=== PATIENT | female | born 1965 | race American Indian/Alaskan Native ===

== ENCOUNTER 2016-06-24 11:22 | Emergency (ER) | payer MEDICAID ==
[2016-06-24] MEDS ORDERED: ZESTRIL PO ONE (13:08)
--- NOTE | 2016-06-24 13:08 | Emergency Department Report ---
<NEDA KAY - Last Filed: 06/24/16 13:56> ED General Adult HPI - General Chief complaint: Rectal Pain Stated complaint: HEMORRHOIDS Time Seen by Provider: 06/24/16 12:22 Source: patient Mode of arrival: Ambulatory Limitations: No Limitations - History of Present Illness Initial comments: This is a 51-year-old female that presents with rectal pain since Friday. Patient complaining of severe pain 10 out of 10 with noticeable hemorrhoids. Patient stated has been taking heth-utf-rdlvvxt products such as abscess and so an sitz bath with unknown gfzz-dfi-upkdilv topical cream for pain with minimal relief. He denies any history of this. Based denies any bleeding. Based denies visual bleeding after a bowel movement. Denies any headache, chest pain , shortness of breath, abdominal pain. Patient stated has history of hypertension but has not been taking lisinopril for the past couple of days due to no medication refill. 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 Patient they will follow up with her building construction ironworker this week. Denies headache or visual changes. Patient is not toxic or ill appearance. No signs of distress noted. MD Complaint: hemorrhoids -: Gradual, days(s) (3) Radiation: non-radiation Severity scale (0 -10): 10 Consistency: constant Improves with: other (sitz bath, OTC unknown topical hemorrhoid cream) Associated Symptoms: denies other symptoms. denies: confusion, chest pain, cough, diaphoresis, fever/chills, headaches, loss of appetite, malaise, nausea/ vomiting, rash, seizure, shortness of breath, syncope, weakness Treatments Prior to Arrival: none - Related Data Previous Rx's Medication Instructions Recorded Last Taken Type Diazepam Tab [Valium] 5 mg PO Q8HR PRN #10 tablet 02/19/15 Unknown Rx Ibuprofen [Motrin] 600 mg PO Q8H PRN #15 tablet 02/19/15 Unknown Rx Lisinopril [Zestril TAB] 5 mg PO QDAY #31 tablet 04/12/16 Unknown Rx traMADol [Ultram 50 MG tab] 50 mg PO Q6HR PRN #15 tablet 04/12/16 Unknown Rx Hydrocortisone/Lidocaine/Aloe 1 each RC PRN #1 kit 06/24/16 Unknown Rx [Afshan-Davon 2-2% Kit] Ibuprofen [Motrin 600 MG tab] 600 mg PO Q8H PRN 5 Days 06/24/16 Unknown Rx Allergies Allergy/AdvReac Type Severity Reaction Status Date / Time No Known Allergies Allergy Unverified 02/18/15 18:25 ED Review of Systems ROS: Stated complaint: HEMORRHOIDS Other details as noted in HPI Constitutional: denies: chills, fever Eyes: denies: eye pain, eye discharge, vision change ENT: denies: ear pain, throat pain Respiratory: denies: cough, shortness of breath, wheezing Cardiovascular: denies: chest pain, palpitations Endocrine: no symptoms reported Gastrointestinal: denies: abdominal pain, nausea, diarrhea Genitourinary: denies: urgency, dysuria, discharge Musculoskeletal: denies: back pain, joint swelling, arthralgia Skin: denies: rash, lesions Neurological: denies: headache, weakness, paresthesias Psychiatric: denies: anxiety, depression Hematological/Lymphatic: denies: easy bleeding, easy bruising ED Past Medical Hx - Past Medical History Hx Hypertension: Yes Hx Psychiatric Treatment: Yes (BIPOLAR, ANXIETY) - Surgical History Additional Surgical History: ABDOMINAL SURGERY, HYST, - Social History Smoking Status: Unknown if ever smoked Substance Use Type: None - Medications Home Medications: Home Medications Medication Instructions Recorded Confirmed Last Taken Type Diazepam Tab [Valium] 5 mg PO Q8HR PRN #10 tablet 02/19/15 Unknown Rx Ibuprofen [Motrin] 600 mg PO Q8H PRN #15 tablet 02/19/15 Unknown Rx Lisinopril [Zestril TAB] 5 mg PO QDAY #31 tablet 04/12/16 Unknown Rx traMADol [Ultram 50 MG tab] 50 mg PO Q6HR PRN #15 tablet 04/12/16 Unknown Rx Hydrocortisone/Lidocaine/Aloe 1 each RC PRN #1 kit 06/24/16 Unknown Rx [Afshan-Davon 2-2% Kit] Ibuprofen [Motrin 600 MG tab] 600 mg PO Q8H PRN 5 Days 06/24/16 Unknown Rx ED Physical Exam - General Limitations: No Limitations General appearance: alert, in no apparent distress - Head Head exam: Present: atraumatic, normocephalic - Eye Eye exam: Present: normal appearance - ENT ENT exam: Present: mucous membranes moist - Neck Neck exam: Present: normal inspection - Respiratory Respiratory exam: Present: normal lung sounds bilaterally. Absent: respiratory distress - Cardiovascular Cardiovascular Exam: Present: regular rate, normal rhythm. Absent: systolic murmur, diastolic murmur, rubs, gallop - GI/Abdominal GI/Abdominal exam: Present: soft, normal bowel sounds. Absent: distended, tenderness, rebound, rigid - Rectal Rectal exam: Present: hemorrhoids. Absent: decreased rectal tone, heme (+) stool, bloody stool, fecal impaction, mass, tenderness - External exam: Present: normal external exam. Absent: erythema, swelling, lesions, lacerations, ecchymosis, bleeding - Extremities Exam Extremities exam: Present: normal inspection - Back Exam Back exam: Present: normal inspection - Neurological Exam Neurological exam: Present: alert, oriented X3 - Psychiatric Psychiatric exam: Present: normal affect, normal mood - Skin Skin exam: Present: warm, dry, intact, normal color. Absent: rash ED Course Vital Signs 06/24/16 06/24/16 06/24/16 11:51 13:20 13:21 Temperature 98.4 F 97.4 F L Pulse Rate 85 80 Respiratory 18 20 18 Rate Blood Pressure 160/104 149/84 Blood Pressure 149/84 [Right] O2 Sat by Pulse 100 100 Oximetry 06/24/16 13:52 Temperature Pulse Rate 91 H Respiratory Rate Blood Pressure Blood Pressure 169/90 [Right] O2 Sat by Pulse Oximetry - Reevaluation(s) Reevaluation #1: 06/24/16 13:58 Dr. Florence aware of patient v/s and d/c treatment plan/. ED Medical Decision Making - Medical Decision Making ED course: 51-year-old female that presents with hemorrhoids 1- Dr. Davenport has examined the patient and agrees with d/c plan and treatment 2- I instructed patient to follow-up with outpatient general surgery as soon as possible. 3- I instructed the patient to observe sign and symptoms of bleeding and return back to ER if symptoms of worsening and/or bleeding occurs. 4- Patient received information on sitz bath and topical hydrocortisone/ lidocaine. 5- patient agreed to discharge plan and treatment. No further questions noted from the patient this time. 6- at the time of discharged the patient does not seem toxic or ill appearance. No signs of distress noted. 7- patient received ultram and lisinopril by mouth. As per patient her daughter in a waiting room. I instructed the patient not to use heavy machinery due to sedation of Ultram that recently received in the ER. Critical care attestation.: If time is entered above; I have spent that time in minutes in the direct care of this critically ill patient, excluding procedure time. ED Disposition Disposition: DISCHARGED TO HOME OR SELFCARE Is pt being admited?: No Does the pt Need Aspirin: No Condition: Stable Instructions: Sitz Bath (GEN) Additional Instructions: Follow-up with an outpatient primary care doctor and general surgeon as soon as possible. If symptoms worsen such as uncontrollable pain and/or bleeding report back to emergency room. Prescriptions: Hydrocortisone/Lidocaine/Aloe [Afshan-Davon 2-2% Kit] 1 each RC PRN #1 kit Ibuprofen [Motrin 600 MG tab] 600 mg PO Q8H PRN 5 Days PRN Reason: Pain Referrals: PRIMARY CAREMD [Primary Care Provider] - 3-5 Days [facility] [Outside] - 3-5 Days [facility] [Outside] - 3-5 Days MOLINA JUAREZ MD [Staff Physician] - 24 Hours Forms: Work/School Release Form(ED) <ASIA FLORENCE - Last Filed: 06/26/16 08:26> ED Medical Decision Making - Medical Decision Making I have seen and examined the patient. Large external hemorrhoids present without thrombosis. I agree with the plan of care as documented.
[2016-06-24] MEDS ORDERED: ULTRAM PO ONE (13:09)
[2016-06-24 13:52] VITALS: BP 169/90
== END 2016-06-24 14:10 | disposition home or self-care (01) ==
LOC: ED 11:22
DX: K64.9 Unspecified hemorrhoids (principal); I10 Essential (primary) hypertension; F31.9 Bipolar disorder, unspecified
CPT/HCPCS: 99283

== ENCOUNTER 2016-06-27 09:49 | Emergency (ER) | payer MEDICAID ==
[2016-06-27 10:17] VITALS: BP 168/100
--- NOTE | 2016-06-27 11:36 | Emergency Department Report ---
ED Female HPI - General Chief complaint: Rectal Pain Stated complaint: HEMMOROIDS Time Seen by Provider: 06/27/16 11:10 Source: patient Mode of arrival: Ambulatory Limitations: No Limitations - History of Present Illness Initial comments: 51-year-old female past medical history hypertension anxiety bipolar disorder presents with complaint of one week of anal itching anal discomfort, patient states she was diagnosed with hemorrhoids has been using hemorrhoid cream and Motrin but pain is still bothering her. Patient states she had one episode of bright red blood per rectum this morning. Denies any persistent bleeding. Patient states it is uncomfortable when she defecates. Onset/Timin -: week(s) Severity: moderate Severity scale (0 -10): 6 Quality: burning Consistency: intermittent Worsens with: other (defecation) Are you Now?: No - Related Data Previous Rx's Medication Instructions Recorded Last Taken Type Diazepam Tab [Valium] 5 mg PO Q8HR PRN #10 tablet 02/19/15 Unknown Rx Ibuprofen [Motrin] 600 mg PO Q8H PRN #15 tablet 02/19/15 Unknown Rx Lisinopril [Zestril TAB] 5 mg PO QDAY #31 tablet 04/12/16 Unknown Rx traMADol [Ultram 50 MG tab] 50 mg PO Q6HR PRN #15 tablet 04/12/16 Unknown Rx Hydrocortisone/Lidocaine/Aloe 1 each RC PRN #1 kit 06/24/16 Unknown Rx [Afshan-Davon 2-2% Kit] Ibuprofen [Motrin 600 MG tab] 600 mg PO Q8H PRN 5 Days 06/24/16 Unknown Rx Naproxen [Naprosyn TAB] 500 mg PO BID PRN #30 tablet 06/27/16 Unknown Rx Allergies Allergy/AdvReac Type Severity Reaction Status Date / Time No Known Allergies Allergy Verified 06/27/16 10:17 ED Review of Systems ROS: Stated complaint: HEMMOROIDS Other details as noted in HPI Constitutional: denies: chills, fever Eyes: denies: eye pain, eye discharge, vision change ENT: denies: ear pain, throat pain Respiratory: denies: cough, shortness of breath, wheezing Cardiovascular: denies: chest pain, palpitations Endocrine: no symptoms reported Gastrointestinal: denies: abdominal pain, nausea, diarrhea Genitourinary: other (hemorrhoids). denies: urgency, dysuria, discharge Musculoskeletal: denies: back pain, joint swelling, arthralgia Skin: denies: rash, lesions Neurological: denies: headache, weakness, paresthesias Psychiatric: denies: anxiety, depression Hematological/Lymphatic: denies: easy bleeding, easy bruising ED Past Medical Hx - Past Medical History Hx Hypertension: Yes Hx Psychiatric Treatment: Yes (BIPOLAR, ANXIETY) Additional medical history: OBESITY - Surgical History Additional Surgical History: ABDOMINAL SURGERY, HYST - Social History Smoking Status: Current Every Day Smoker Substance Use Type: Alcohol - Medications Home Medications: Home Medications Medication Instructions Recorded Confirmed Last Taken Type Diazepam Tab [Valium] 5 mg PO Q8HR PRN #10 tablet 02/19/15 Unknown Rx Ibuprofen [Motrin] 600 mg PO Q8H PRN #15 tablet 02/19/15 Unknown Rx Lisinopril [Zestril TAB] 5 mg PO QDAY #31 tablet 04/12/16 Unknown Rx traMADol [Ultram 50 MG tab] 50 mg PO Q6HR PRN #15 tablet 04/12/16 Unknown Rx Hydrocortisone/Lidocaine/Aloe 1 each RC PRN #1 kit 06/24/16 Unknown Rx [Afshan-Davon 2-2% Kit] Ibuprofen [Motrin 600 MG tab] 600 mg PO Q8H PRN 5 Days 06/24/16 Unknown Rx Naproxen [Naprosyn TAB] 500 mg PO BID PRN #30 tablet 06/27/16 Unknown Rx ED Physical Exam - General Limitations: No Limitations General appearance: alert, in no apparent distress - Head Head exam: Present: atraumatic, normocephalic - Eye Eye exam: Present: normal appearance, PERRL, EOMI - ENT ENT exam: Present: mucous membranes moist - Neck Neck exam: Present: normal inspection - Respiratory Respiratory exam: Present: normal lung sounds bilaterally. Absent: respiratory distress - Cardiovascular Cardiovascular Exam: Present: regular rate, normal rhythm. Absent: systolic murmur, diastolic murmur, rubs, gallop - GI/Abdominal GI/Abdominal exam: Present: soft, normal bowel sounds - Rectal Rectal exam: Present: hemorrhoids (large external hemorrhoid, no active hemorrhage) - Extremities Exam Extremities exam: Present: normal inspection - Back Exam Back exam: Present: normal inspection - Neurological Exam Neurological exam: Present: alert, oriented X3 - Psychiatric Psychiatric exam: Present: normal affect, normal mood - Skin Skin exam: Present: warm, dry, intact, normal color. Absent: rash ED Course Vital Signs 06/27/16 10:12 Temperature 97.7 F Pulse Rate 95 H Respiratory 18 Rate Blood Pressure 168/100 O2 Sat by Pulse 98 Oximetry ED Medical Decision Making - Medical Decision Making A/P: Large external hemorrhoid 1-as patient experienced no relief with Motrin will give course of naproxen instead 2-I advised patient to use sitz bath 3-or referred patient to surgery and gastroenterology for management of large external hemorrhoid, patient is still able to defecate, rectal bleeding is minimal, rectal vault patent on digital rectal exam 4-I advised patient that she should return if she experiences persistent heavy rectal bleeding, chest pain, palpitations, nausea, vomiting, inability to tolerate by mouth Critical care attestation.: If time is entered above; I have spent that time in minutes in the direct care of this critically ill patient, excluding procedure time. ED Disposition Clinical Impression: Hemorrhoids Qualifiers: Hemorrhoid type: third degree Qualified Code(s): K64.2 - Third degree hemorrhoids Disposition: DISCHARGED TO HOME OR SELFCARE Is pt being admited?: No Does the pt Need Aspirin: No Condition: Stable Instructions: Hemorrhoids (ED) Prescriptions: Naproxen [Naprosyn TAB] 500 mg PO BID PRN #30 tablet PRN Reason: Pain Referrals: OSBALDO ZENG MD [Staff Physician] - 3-5 Days [facility] [Provider Group] - 3-5 Days Forms: Work/School Release Form(ED) Time of Disposition: 11:41
== END 2016-06-27 11:48 | disposition home or self-care (01) ==
LOC: ED 09:49
DX: K64.2 Third degree hemorrhoids (principal); I10 Essential (primary) hypertension; F31.9 Bipolar disorder, unspecified; F17.200 Nicotine dependence, unspecified, uncomplicated
CPT/HCPCS: 99282

== ENCOUNTER 2016-09-07 03:08 | Emergency (ER) | payer MEDICAID ==
[2016-09-07] MEDS ORDERED: MOTRIN PO ONE (07:58)
--- NOTE | 2016-09-07 07:58 | Emergency Department Report ---
Upper Extremity - HPI Chief Complaint: Fall Stated Complaint: LT HAND 4TH FINGER INJURY Time Seen by Provider: 09/07/16 07:44 Upper Extremity: Left Ring Finger (pain and swelling after injury) Occurred When: >5 Days (1 week) Mechanism: Fall Severity: severe Symptoms: Yes Pain with Movement (left ring finger), Yes Swelling (left ring finger), No Deformity, No Limited Range of Movement, No Numbness, No Weakness, No Bruising/Ecchymosis, No Laceration or Abrasion Other History: She here reported that she fell and injured her left ring finger 1 week ago. She is reporting in pain and swelling at 9 out of 10.OTC medication did not help her patient. Denies any numbness or tingling to injured finger or left hand. ED Review of Systems ROS: Stated complaint: LT HAND 4TH FINGER INJURY Other details as noted in HPI Comment: All other systems reviewed and negative Constitutional: no symptoms reported Respiratory: no symptoms reported Cardiovascular: denies: chest pain, palpitations, edema, syncope Gastrointestinal: denies: nausea, vomiting Musculoskeletal: joint swelling, arthralgia. denies: back pain, myalgia Neurological: denies: headache, weakness, numbness, paresthesias, confusion ED Past Medical Hx - Past Medical History Previous Medical History?: Yes Hx Hypertension: Yes Hx Psychiatric Treatment: Yes (BIPOLAR, ANXIETY) Additional medical history: OBESITY - Surgical History Past Surgical History?: Yes Additional Surgical History: ABDOMINAL SURGERY, HYST - Family History Family history: hypertension - Social History Smoking Status: Current Every Day Smoker Substance Use Type: None - Medications Home Medications: Home Medications Medication Instructions Recorded Confirmed Last Taken Type Diazepam Tab [Valium] 5 mg PO Q8HR PRN #10 tablet 02/19/15 Unknown Rx Lisinopril [Zestril TAB] 5 mg PO QDAY #31 tablet 04/12/16 Unknown Rx traMADol [Ultram 50 MG tab] 50 mg PO Q6HR PRN #15 tablet 04/12/16 Unknown Rx Hydrocortisone/Lidocaine/Aloe 1 each RC PRN #1 kit 06/24/16 Unknown Rx [Afshan-Davon 2-2% Kit] Ibuprofen [Motrin 600 MG tab] 600 mg PO Q8H PRN 5 Days 06/24/16 Unknown Rx Naproxen [Naprosyn TAB] 500 mg PO BID PRN #30 tablet 06/27/16 Unknown Rx Ibuprofen [Motrin 600 MG tab] 600 mg PO Q8H PRN #15 tablet 09/07/16 Unknown Rx Upper Extremity Exam - Exam General: Vital signs noted. No distress. Alert and acting appropriately. This is a 51-year-old female well-nourished well-developed in no acute distress. Head and Torso: No HEENT Abnormality (normal exam), No Neck Tenderness (full range of motion, supple ,nontender to palpate), No Chest/Lungs Abnormality ( clear to auscultate bilaterally, no rhonchi wheezes or rales.), No Abdominal Tenderness (soft, nontender to palpate in all quadrants. Normal bowel sounds), No Back Tenderness (no vertebral or paraspinal tenderness. Full range of motion and normal inspection.) Shoulder Exam: Yes Normal Range of Motion in Shoulder, No Shoulder Tenderness, No Clavicle Tenderness, No Shoulder Deformity, No AC Joint Tenderness Elbow: Yes Normal Range of Motion in Elbow, No Elbow Tenderness, No Elbow Deformity Forearm: No Forearm Tenderness, No Forearm Deformity, No Pain with Pronation, No Pain with Supination Wrist: No Wrist Tenderness, No Normal ROM in Wrist, No Wrist Deformity, No Snuffbox Tenderness, No Pain with Axial Thumb Compression Hand: Yes Digit Tenderness (left ring finger tender to palpate with animal swelling. From MIP to the PIP joint), Yes Normal ROM in Digit(s), No Hand Tenderness, No Hand Deformity, No Digit(s) Deformity, No Tendon Dysfunction CMS Exam: Yes Normal Capillary Refill, Yes Normal Distal Sensation, No Broken Skin, No Normal Distal Pulses ED Course Vital Signs 09/07/16 03:15 Temperature 98.9 F Pulse Rate 99 H Respiratory 16 Rate Blood Pressure 122/92 O2 Sat by Pulse 100 Oximetry - Reevaluation(s) Reevaluation #1: 09/07/16 08:52 Patient received ibuprofen 800 mg emergency room for pain to left ring finger. - Orthopedic Splinting/Casting Injury #1 Side: left Upper Extremity Injury Location: finger Upper Extremity Immobilizer: aluminum form splint ED Medical Decision Making - Radiology Data Radiology results: report reviewed X-ray of left hand reveal no acute bony abnormality. - Medical Decision Making ED course: I discussed post fall one week ago with injury to left ring finger. Arthralgia to left ring finger and contusion of left ring finger. The procedure note for splinting in detail. I assumed patient that if she continues to have pain she'll need to follow up with orthopedic doctor. discharged home with prescriptions for Motrin. given Motrin 800 mg in emergency room to manage pain Critical care attestation.: If time is entered above; I have spent that time in minutes in the direct care of this critically ill patient, excluding procedure time. ED Disposition Clinical Impression: Finger pain, left Contusion of ring finger Qualifiers: Encounter type: initial encounter Damage to nail status: without damage Laterality: left Qualified Code(s): S60.042A - Contusion of left ring finger without damage to nail, initial encounter Disposition: - TO HOME OR SELFCARE Is pt being admited?: No Does the pt Need Aspirin: No Condition: Stable Instructions: Contusion in Adults (ED), Arthralgia (ED), RICE Therapy (ED) Additional Instructions: Rest, ice, compress and elevate affected area Follow Up with orthopedic doctor if he still continues to have pain. Prescriptions: Ibuprofen [Motrin 600 MG tab] 600 mg PO Q8H PRN #15 tablet PRN Reason: Pain Referrals: PRIMARY CARE,MD [Primary Care Provider] - 3-5 Days Forms: Accompanied Note, Work/School Release Form(ED)
--- NOTE | 2016-09-07 08:04 | XRay Report ---
FINAL REPORT PROCEDURE: XR HAND 2V LT TECHNIQUE: AP and lateral views of the left hand are submitted. HISTORY: LEFT RING FINGER PAIN COMPARISON: None FINDINGS: There is no evident fracture or dislocation. There is no radiographically evident osteomyelitis. Joint spaces are maintained. There is no blastic or lytic lesion. There is no radiopaque foreign body. IMPRESSION: No radiographically evident abnormality.
[2016-09-07 09:19] VITALS: BP 154/96
== END 2016-09-07 09:18 | disposition home or self-care (01) ==
LOC: ED 03:08
DX: S60.042A Contusion of left ring finger without damage to nail, initial encounter (principal); I10 Essential (primary) hypertension; F31.9 Bipolar disorder, unspecified; F17.200 Nicotine dependence, unspecified, uncomplicated; W18.30XA Fall on same level, unspecified, initial encounter; Y93.9 Activity, unspecified; Y92.9 Unspecified place or not applicable; Y99.9 Unspecified external cause status
CPT/HCPCS: 99283

== ENCOUNTER 2017-04-14 08:38 | Emergency (ER) | payer MEDICAID ==
[2017-04-14 08:58] VITALS: BP 134/82
[2017-04-14 09:19] LABS: Basophils % (Auto) 1.5 % (0.0-1.8); Eosinophils % (Auto) 0.3 % (0.0-4.3); Hematocrit 43.5 % (30.3-42.9); Hemoglobin 14.5 gm/dl (10.1-14.3); Lymphocytes # (Auto) 0.6 K/mm3 (1.2-5.4); Lymphocytes % (Auto) 21.3 % (13.4-35.0); Mean Corpuscular HGB Conc 34 % (30-34); Mean Corpuscular Hemoglobin 27 pg (28-32); Mean Corpuscular Volume 82 fl (79-97); Monocytes # (Auto) 0.4 K/mm3 (0.0-0.8); Monocytes % (Auto) 13.3 % (0.0-7.3); Platelet Count 193 K/mm3 (140-440); Red Blood Count 5.32 M/mm3 (3.65-5.03); Red Cell Distribution Width 16.5 % (13.2-15.2)
[2017-04-14 09:28] LABS: Bilirubin,Urine NEG (Negative); Blood,Urine NEG (Negative); Color,Urine Yellow (Yellow); Mucus,Urine FEW /HPF; Nitrite,Urine NEG (Negative)
[2017-04-14 09:36] LABS: Alanine Aminotransferase 21 units/L (7-56); Albumin 3.9 g/dL (3.9-5); BUN/Creatinine Ratio 6; Blood Urea Nitrogen 3 mg/dL (7-17); Calcium 9.1 mg/dL (8.4-10.2); Hemolysis Index 10; Lipase 25 units/L (13-60)
== END 2017-04-14 10:00 | disposition left against medical advice (07) ==
LOC: ED 08:38
DX: M79.1 Myalgia (principal); Z53.21 Procedure and treatment not carried out due to patient leaving prior to being seen by health care provider
CPT/HCPCS: 36415; 80053; 81001; 83690; 85025

== ENCOUNTER 2019-04-06 15:26 | Emergency (ER) | payer MEDICAID ==
[2019-04-06] MEDS ORDERED: ACETAMINOPHEN 500 MG TAB PO ONE (16:00)
[2019-04-06] MEDS ORDERED: FAMOTIDINE 20 MG TAB PO ONE (16:00)
[2019-04-06] MEDS ORDERED: ALPRAZolam 0.5 MG TAB PO ONE (16:00)
[2019-04-06] MEDS ORDERED: METOCLOPRAMIDE 10 MG TAB PO ONE (16:00)
[2019-04-06 16:01] VITALS: BP 176/110
--- NOTE | 2019-04-06 16:02 | Emergency Department Report ---
Chief Complaint: Chest Pain Stated Complaint: RT ARM PAIN Time Seen by Provider: 04/06/19 16:01 - HPI History of Present Illness: 54 y/o female presents with 1) right sided headache 2) b/l intermittent shoulder pain 3) right superior lateral chest wall pain 4) anxiety gcs 15 clinically sober exam non focal feels like shes very anxious no pe dvt risk factors low risk by wells criteria Vital Signs 04/06/19 15:57 Temperature 97.6 F Pulse Rate 98 H Respiratory 20 Rate Blood Pressure 176/110 O2 Sat by Pulse 100 Oximetry - Exam Vital Signs: Vital Signs 04/06/19 15:57 Temperature 97.6 F Pulse Rate 98 H Respiratory 20 Rate Blood Pressure 176/110 O2 Sat by Pulse 100 Oximetry MSE screening note: Focused history and physical exam performed. Due to findings the following was ordered: ED Disposition for MSE Condition: Stable
--- NOTE | 2019-04-06 16:43 | XRay Report ---
CHEST 2 VIEWS INDICATION / CLINICAL INFORMATION: cp. COMPARISON: 04/12/2016 FINDINGS: SUPPORT DEVICES: None. HEART / MEDIASTINUM: Heart size is normal with left ventricular configuration. LUNGS / PLEURA: No significant pulmonary or pleural abnormality. No pneumothorax. ADDITIONAL FINDINGS: No significant additional findings. IMPRESSION: 1. No acute findings. Signer Name: Js Keita MD Signed: 04/06/2019 4:39 PM Workstation Name: [id number]
[2019-04-06 16:54] LABS: Hematocrit 44.2 % (30.3-42.9); Hemoglobin 14.5 gm/dl (10.1-14.3); Mean Corpuscular HGB Conc 33 % (30-34); Mean Corpuscular Volume 82 fl (79-97); Platelet Count 323 K/mm3 (140-440); Red Blood Count 5.38 M/mm3 (3.65-5.03); Red Cell Distribution Width 15.3 % (13.2-15.2)
--- NOTE | 2019-04-06 16:57 | Cat Scan Report ---
CT HEAD WITHOUT CONTRAST INDICATION / CLINICAL INFORMATION: right sided headache. TECHNIQUE: All CT scans at this location are performed using CT dose reduction for ALARA by means of automated e xposure control. COMPARISON: None available. FINDINGS: HEMORRHAGE: No evidence of intracranial hemorrhage or extra-axial fluid collection. EXTRA-AXIAL SPACES: Cortical sulci, sylvian fissures and basilar cisterns have an unremarkable appear ance. VENTRICULAR SYSTEM: The ventricular system is of normal size and configuration. CEREBRAL PARENCHYMA: No areas of abnormal brain parenchymal attenuation are identified. There is no i ndication of recent infarction. MIDLINE SHIFT OR HERNIATION: There is no mass effect. CEREBELLUM / BRAINSTEM: Brainstem and cerebellum have an unremarkable appearance. INTRACRANIAL VESSELS:No abnormalities are identified on this noncontrast head CT. ORBITS: visualized portions of the orbits have an unremarkable appearance. SOFT TISSUES of HEAD: No significant abnormality. CALVARIUM: Evaluation of bone windows reveals no abnormalities. PARANASAL SINUSES / MASTOID AIR CELLS: Paranasal sinuses are free from inflammatory mucosal disease. The frontal sinuses did not develop in this individual. Mastoid air cells are normally pneumatized. ADDITIONAL FINDINGS: None. IMPRESSION: 1. No abnormalities are identified on head CT without contrast. Signer Name: Anibal Seo MD Signed: 04/06/2019 4:52 PM Workstation Name: [id number]
[2019-04-06 17:07] LABS: INR 0.96 (0.87-1.13)
[2019-04-06 17:21] LABS: Alanine Aminotransferase 19 units/L (7-56); Albumin 4.1 g/dL (3.9-5); BUN/Creatinine Ratio 17; Blood Urea Nitrogen 10 mg/dL (7-17); Hemolysis Index 9
== END 2019-04-06 22:59 | disposition left against medical advice (07) ==
LOC: ED 15:26
DX: M79.601 Pain in right arm (principal); R51 Headache; R07.89 Other chest pain; M25.511 Pain in right shoulder; M25.512 Pain in left shoulder
CPT/HCPCS: 36415; 70450; 71046; 80053; 82550; 83735; 84484; 85027; 85610; 93005; 93010

== ENCOUNTER 2019-10-16 19:49 | Emergency (ER) | payer MEDICAID ==
[2019-10-16 20:36] VITALS: BP 135/92
== END 2019-10-17 07:36 | disposition left against medical advice (07) ==
LOC: ED 19:49
DX: M25.561 Pain in right knee (principal); M79.605 Pain in left leg; Z53.21 Procedure and treatment not carried out due to patient leaving prior to being seen by health care provider; W01.0XXA Fall on same level from slipping, tripping and stumbling without subsequent striking against object, initial encounter; Y93.89 Activity, other specified; Y92.89 Other specified places as the place of occurrence of the external cause; Y99.8 Other external cause status